=== PATIENT | female | born 2000 | race Caucasian/White ===

== ENCOUNTER 2022-01-12 07:35 | Outpatient (CLI) | payer BC ==
[2022-01-12] VITALS (18 sets, daily range): BP systolic 93–138; BP diastolic 53–100
[~2022-01-12 07:35] MED LIST: BCP PO
== END 2022-01-12 23:59 | disposition home or self-care (01) ==
LOC: CARD DIAG 07:35
PROVIDERS: ATTEND Student in an Organized Health Care Education/Training Program
DX: R55 Syncope and collapse (principal)
CPT/HCPCS: 93660

== ENCOUNTER 2023-02-10 17:23 | Emergency (ER) | payer BC ==
[~2023-02-10] VITALS: Ht 162.6 cm; Wt 54.5 kg
[2023-02-10 17:58] VITALS: BP 135/92; PULSE 115; RESP 16; TEMP 97.9; O2SAT 100
[2023-02-10] MEDS ORDERED: LIDOcaine 1%/PF 5ML 10 MG/ML VIAL SQ ONE (18:25)
[2023-02-10] MEDS ORDERED: LIDOcaine 1% 30ml preserv. free vial IJ STA (18:27)
== END 2023-02-10 19:03 | disposition home or self-care (01) ==
LOC: ER 17:24
DX: S91.204A Unspecified open wound of right lesser toe(s) with damage to nail, initial encounter (principal); Z88.8 Allergy status to other drugs, medicaments and biological substances; Z79.899 Other long term (current) drug therapy; W22.8XXA Striking against or struck by other objects, initial encounter; Y93.89 Activity, other specified; Y92.89 Other specified places as the place of occurrence of the external cause; Y99.8 Other external cause status
CPT/HCPCS: 73660; 99283